=== PATIENT | male | born 1980 | race Caucasian/White ===

== ENCOUNTER 2020-10-05 19:36 | Emergency (ER) | payer MEDICAID, SELFPAY ==
[2020-10-05 19:41] VITALS: BP 128/90; BP 132/72; PULSE 82; PULSE 85; RESP 15; TEMP 36.6; O2SAT 99; BMI 20.4
--- NOTE | 2020-10-05 20:18 | PC.NURSE ---
Bladder scan performed and patient has a small hole at the inside base of his penis directly above his testicles
--- NOTE | 2020-10-05 20:35 | PC.NURSE ---
Patient was straight cathed by Pct and CERTIFIED NUCLEAR MEDICINE TECHNOLOGIST evaluated patient at the bedside. Patient had a large amount of urine. Patient is in police custody and will be released in their custody
--- NOTE | 2020-10-05 20:48 | ED.MALEGU ---
HPI - Male Genitourinary General Chief complaint: Urogenital-Male Stated complaint: URINARY RETENTION Time Seen by Provider: 10/05/20 20:37 Source: patient Mode of arrival: ambulatory Limitations: no limitations History of Present Illness HPI Narrative: 40-year-old past medical history of congenital kidney disease status post kidney transplant, neurogenic bladder with multiple reconstructions at the age of 13, requiring self catheterizations presents in police custody for urinary retention. Has not straight cathed today because of his arrest. He does not describe any other symptoms at this time. MD Complaint: other Onset (ago): hour(s) (8) Duration: constant Severity: severe Severity scale (1-10): 9 Quality: aching Relieving factors: none Exacerbating factors: movement Associated symptoms: Reports urinary retention Related Data Allergies Allergy/AdvReac Type Severity Reaction Status Date / Time Iodinated Contrast Media Allergy Unknown HIVES Verified 10/05/20 20:37 [IV Dye, Iodine Containing] codeine Allergy Unknown Verified 10/05/20 20:38 Review of Systems Review of Systems: Constitutional: No Fever, No Chills ENT/Mouth: No Ear Pain, No Hoarseness, No sore throat Eyes: No Eye Pain, No Swelling, No Redness, No Foreign Body Cardiovascular: No Chest Pain, No SOB Respiratory: No Cough, No Dyspnea Gastrointestinal: No Nausea, No Vomiting, No Diarrhea, No abdominal Pain Genitourinary: Positive urinary retention, No Dysuria, No Hematuria Musculoskeletal: No joint pain, No Myalgias, No Joint Swelling Skin: No Skin lacerations, No rash Neuro: No Weakness, No Numbness, No Paresthesias, No Loss of Consciousness, No Dizziness, No Headache Psych: No Anxiety/Panic, No Depression Heme/Lymph: no easy bruising, no Lymphadenopathy Endocrine: No Polyuria, No Polydipsia Yes all other systems are reviewed and are negative [facility] Past Medical History Surgical History (Updated 10/05/20 @ 19:47 by Kristy Sy) Transplanted kidney Social History Social History Smoking Status: Never smoker Use of substances other than those prescribed or required for medical reasons: Yes Substance Use Type: Marijuana Substance Use Frequency: Daily Advance Directives: No Advance Directives Information Provided: Yes Physical Exam Vital Signs: Vital Signs: Last Vital Signs Temp 98 F 10/05/20 19:41 Pulse 85 10/05/20 19:41 Resp 15 10/05/20 19:41 BP 128/90 H 10/05/20 19:41 Pulse Ox 99 10/05/20 19:41 Body Mass Index 20.4 Appearance: Alert. Oriented X3. No acute distress. Eyes: Pupils equal, round and reactive to light. ENT: Pharynx normal. Neck: Normal inspection. Neck supple. CVS: Normal heart rate and rhythm. Pulses normal. Respiratory: No respiratory distress. Breath sounds normal. Abdomen: Soft and nontender. Skin: Skin warm and dry. Normal skin color. Normal skin turgor. Extremities: No lower extremity edema. Neuro: No motor deficit. No sensory deficit. Course Course Course Narrative: 40-year-old male in police custody presents with urinary retention. He has not been straight cathed in several hours as he has been in police custody. He had a kidney transplant 2002, has had multiple surgeries for congenital kidney disease and has been straight cathing since he was a child. Bladder scan indicates 700 mL residual. Plan of care is for him to straight cath himself. Patient was given a 14 Guatemalan straight catheterization kit, patient did have problems as this is not the kind of system he is used to. Uro jet applied to help with pressure, this WORKSITE WELLNESS PRACTITIONER was able to cannulate the bladder with the 14 Guatemalan Sneed catheterization. 700 mL of residual removed. Patient will be discharged into police custody. Patient verbalized understanding of and agrees to plan of care. MDM - Male Genitourinary MDM Narrative Medical decision making narrative: Chronic urinary retention Medical Records Attestation: I reviewed the patient's medical records. Discharge Plan Discharge Clinical Impression: H/O urinary retention Patient Disposition: Home, Self-Care Instructions: Urinary Retention in Men (ED) Additional Instructions: You were evaluated for urinary retention. We were able to insert a 14 Guatemalan catheter to remove 700 mL of urine. Please continue to maintain your schedule urinary draining. Thank you for choosing this emergency department for evaluation. Please follow-up with primary care physician as needed. Return to the emergency department for any new, concerning, or worsening symptoms. Interventions: ED Discharge Assessment Last Done: 10/05/20 20:43 Discharge Date/Time: 10/05/20 21:32
== END 2020-10-05 21:32 | disposition home or self-care (01) ==
PROVIDERS: Emergency Provider Emergency Medicine; PCP Internal Medicine
DX: R33.8 Other retention of urine (principal); Z94.0 Kidney transplant status
CPT/HCPCS: 51701; 99284

== ENCOUNTER 2024-12-07 19:50 | Emergency (ER) | payer MEDICAID, SELFPAY ==
--- NOTE | ~2024-12-07 | XR_ITS ---
CLINICAL HISTORY: pain 1 view chest x-ray Comparison: None Findings: Low lung volumes with mild subsegmental atelectasis. No consolidation, pneumothorax, or pleural effusion. Cardiac silhouette and mediastinal contours are within upper limits of normal. No acute fracture. IMPRESSION: Low lung volumes without consolidation. This document has been electronically signed by: Perico Sousa MD on 12/08/2024 01:11:27
[2024-12-07 19:56] VITALS: BP 128/88; PULSE 95; O2SAT 96
[2024-12-07 19:58] VITALS: BP 119/85; PULSE 96; RESP 20; TEMP 37; O2SAT 92; BMI 23.7
--- NOTE | 2024-12-07 20:05 | ECG_ITS ---
Test Reason : CHEST PAIN Blood Pressure : */* mmHG Vent. Rate : 98 BPM Atrial Rate : 98 BPM P-R Int : 142 ms QRS Dur : 94 ms QT Int : 386 ms P-R-T Axes : 30 24 10 degrees QTcB Int : 492 ms Normal sinus rhythm Prolonged QT Abnormal ECG When compared with ECG of 07-Aug-2010 02:57, No significant changes seen Referred By: Generic ED Physician Electronically Signed By: JOE BRASHER
[2024-12-07 20:27] LABS: Basophils Absolute Auto 0.1 X10*3/uL (0.0-0.2); Basophils Percent Auto 0.4 % (0-2); Eosinophils Absolute Auto 0.1 X10*3/uL (0.0-0.4); Eosinophils Percent Auto 0.5 % (0-4); Hematocrit 39.8 % (42.0-52.0); Hemoglobin 13.4 g/dl (14.0-18.0); Imm Gran Abs Auto 0.31 X10*3/uL (0.00-0.03); Imm Gran Pct Auto 1.7 % (0.0-0.4); Lymphocytes Absolute Auto 2.8 X10*3/uL (1.2-4.9); Lymphocytes Percent Auto 15.8 % (20-40); MANUAL DIFF FLAG SCAN; Mean Corpuscular HGB Conc 33.7 g/dl (31.0-36.0); Mean Corpuscular Hemoglobin 25.2 pg (27.0-33.0); Mean Platelet Volume 10.1 fL (9.4-12.4); Monocytes Absolute Auto 1.8 X10*3/uL (0.1-1.2); Neutrophils Absolute Auto 12.9 x10*3/uL (2.0-8.3); Neutrophils Percent Auto 71.6 % (45-73); Platelet Count 271 X10*3/uL (160-400); Red Blood Count 5.31 X10*6/uL (4.60-5.80); Red Cell Distribution Width 16.9 % (11.0-16.0); SCAN SMEAR FLAG 1
[2024-12-07 20:40] LABS: Alanine Aminotransferase 15 U/L (0-40); Albumin Level 3.3 g/dL (3.5-5.0); Alkaline Phosphatase 103 U/L (39-117); Anion Gap 15 (12-20); Aspartate Amino Transferase 26 U/L (5-37); Bilirubin Total 0.5 mg/dL (0.0-1.0); Blood Urea Nitrogen 22 mg/dL (9-16); Carbon Dioxide 22 mmol/L (22-29); Chloride 104 mmol/L (96-108); Creatinine Clr Calc Pharmacy 66.4; Estimated Glomerular Filt Rate 48; Glucose Random 197 mg/dL (60-115); Magnesium 2.1 mg/dL (1.6-2.6); Potassium 3.1 mmol/L (3.3-5.1); Sodium 138 mmol/L (135-145); Total Protein 6.5 g/dL (6.5-8.0)
[2024-12-07 20:45] LABS: SLIDE REVIEW VERIFIED
--- OUTSIDE RECORDS SUMMARY | 2024-12-07 20:45 | XMS_ITS | Encounter Summary ---
Author Organization [facility] Address [address] [facility] [address] [place] [address] Phone Care Team Providers Care Project Structural Engineer Name Role Phone Neo Najera MD Primary Care Provider [phone] Reason for Visit * Reason Comments Med Refill Encounter Details Date Type Department Care Team (Late st Contact Info) Description 11/28/2021 Refill [facility] [address] [place] [address] Pawel Rodriguez MD Social History Tobacco Use Types Packs/Day Years Used Date Smoking Tobacco: Former Cigarettes Q uit: 10/01/2009 Smokeless Tobacco: Never Alcohol Use Standard Drinks/Week Comments Not Currently 0 (1 standard drink = 0.6 oz pur e alcohol) Education Answer Date Recorded What is the highest level of school you have completed or the highest degree you have received? Some college, no degree 12/15/2020 Sex and Gender Information Value Date Recorded Sex Assigned at Not on file Legal Sex Male 5:15 PM EST Gender Identity Not on file Sexual Orientation Not on file Occupation Industry Job Start Date Job End Date unemployed Not on file Not on file Not on file COVID-19 Exposure Response Date Recorded In the last month, have you been in contact with someone who was confirmed or suspected to have Coronavirus / COVID-19? Unable to assess 11/15/2021 10:20 AM EST documented as of this encounter Plan of Treatment Upcoming Encounters Date Type Department Care Team (Late st Contact Info) Description 01/09/2025 9:30 AM EDT [facility] [address] [place] [address] Vinay Waddell MD [address] [place] [address] [place] [address] documented as of this encounter Visit Diagnoses Not on filedocumented in this encounter Care Teams Project Structural Engineer Relationship Specialty Start Date End Date Neo Naejra MD [address] [place] [id number] PCP - General 10/11/20 documented as of this encounter
--- OUTSIDE RECORDS SUMMARY | 2024-12-07 20:45 | XMS_ITS | Encounter Summary ---
Author Organization [facility] Address [address] [facility] [address] [place] [address] Phone Care Team Providers Care Brick Tender Name Role Phone Neo Najera MD Primary Care Provider [phone] Reason for Visit * Reason Comments Med Refill Encounter Details Date Type Department Care Team (Late st Contact Info) Description 08/24/2021 Refill [facility] [address] [place] [address] Pawel Rodriguez MD Social History Tobacco Use Types Packs/Day Years Used Date Smoking Tobacco: Former Cigarettes Q uit: 10/01/2009 Smokeless Tobacco: Never Alcohol Use Standard Drinks/Week Comments Yes 0 (1 standard drink = 0.6 oz [...] file Not on file Not on file documented as of this encounter Plan of Treatment Upcoming Encounters Date Type Department Care Team (Late st Contact Info) Description 01/09/2025 9:30 AM EDT [facility] [address] [place] [address] Vinay Waddell MD [address] [place] [address] [place] [address] documented as of this encounter Visit Diagnoses Not on filedocumented in this encounter Care Teams Brick Tender Relationship Specialty Start Date End Date Neo Najera MD [address] [place] [address] PCP - General 10/11/20 documented as of this encounter
--- OUTSIDE RECORDS SUMMARY | 2024-12-07 20:45 | XMS_ITS | Encounter Summary ---
Author Organization [facility] Address [address] [address] Phone Care Team Providers Care Swahili Teacher Name Role Phone Neo Najera MD Primary Care Provider [phone] Reason for Visit * Reason Comments Med Refill Encounter Details Date Type Department Care Team (Late st Contact Info) Description 10/08/2024 Refill [facility] [address] [facility] [address] [place] [phone] Patrice Bravo MD [address] [address] Social History Tobacco Use Types Packs/Day Years [...] Visit [facility] [address] [place] [phone] Vinay Waddell MD [address] [place] [address] [place] [address] documented as of this encounter Visit Diagnoses Not on filedocumented in this encounter Care Teams Swahili Teacher Relationship Specialty Start Date End Date Neo Najera MD [address] [place], [place] [address] [address] PCP - General 10/11/20 documented as of this encounter
--- OUTSIDE RECORDS SUMMARY | 2024-12-07 20:45 | XMS_ITS ---
Author Name [facility] Organization Unknown Problems Problem Status Onset Date Problem Type Date of Resoluti on Source Complication of transplanted kidney, unspecified complication active EncounterDiagnosisAct [facility]
--- OUTSIDE RECORDS SUMMARY | 2024-12-07 20:45 | XMS_ITS | Clinical Summary ---
Author Organization [facility] Address [address] [place] [address] Care Team Providers Care Equine Pharmacology Technician Name Role Phone Pcp, No Primary Care Provider Unavailabl e Encounters Date Type Department Care Team Description 10/09/2024 Travel from Last 3 Months Social History Tobacco Use Types Packs/Day Years Used Date Smoking Tobacco: Never Assessed Sex and Gender Information Value Date Recorded Sex Assigned at Male 09/29/2024 9:44 AM EST Gender Identity Male 09/29/2024 9:44 AM EST Sexual Orientation Heterosexual (straight) 09/29 9:44 AM EST Plan of Treatment Health Maintenance Due Date Last Done Comments Hepatitis C Virus Screening 1982 HIV Screening 1995 DTaP/Tdap/Td Vaccines (1 - Tdap) 2001 Hepatitis B Vaccines (1 of 3 - 19+ 3-dose series) 2001 Influenza Vaccine 05/01/2024 COVID-19 Vaccine (2023- season) 2024 09/04/2022, 03/15/2022, 12/28/2020, Additional history exists HPV Vaccines Aged Out No longer eligi ble based on patient's age to complete this topic Pneumococcal Vaccine: Pediatric (0-5 Years) and At-Risk Patients (6 to 49 Years) Aged Out No longer eligible based on patient's age to complete this topic Care Teams Equine Pharmacology Technician Relationship Specialty Start Date End Date Pcp, No [address] [place] [address] PCP - General 04/26/22
--- OUTSIDE RECORDS SUMMARY | 2024-12-07 20:45 | XMS_ITS | Clinical Summary ---
Author Organization [facility] Address [address] [place] [address] Phone Care Team Providers Care Unix Analyst Name Role Phone Neo Najera MD Primary Care Provider [phone] Medical History Medical History Date Comments Historical Medical DX 05/25/2008 DX:Kidney transplant Historical Medical DX 05/25/2008 DX:Drug ab use, in remission Social History Tobacco Use Types Packs/Day Years Used Date Smoking Tobacco: Former Smokeless Tobacco: Never Alcohol Use Standard Drinks/Week Comments No 0 (1 standard drink = 0.6 oz pur e alcohol) Sex and Gender Information Value Date Recorded Sex Assigned at Not on file Legal Sex Male 1:28 PM EST Gender Identity Not on file Sexual Orientation Not on file Obstetrics History Plan of Treatment Upcoming Encounters Date Type Department Care Team (Late st Contact Info) Description 12/10/2024 1:00 PM EDT Hospital Encounter [address] [address] Tommy King, DMD [address] [place] [phone] 12/10/2024 1:00 PM EDT - 12/10/2024 2:30 PM EDT Surgery [address] [address] Tommy King, DMD [address] [place], [place] [phone] EXTRACTION TOOTH #19 [[id number]] Scheduled Procedures Name Priority Associated Diagnoses Date/Ti me EXTRACTION TEETH Dental caries on smooth surface penetrating into dentin Anxiety disorder, unspecified 12/10/2024 1:00 PM EDT Health Maintenance Due Date Last Done Comments Hepatitis B Vaccines (1 of 3 - 19+ 3-dose series) 2001 Pneumococcal Vaccine: Pediatrics (0 to 5 Years) and At-Risk Patients (6 to 64 Years) (2 of 2 - PPSV23) 11/21/2021 09/26/2021 COVID-19 Vaccine (5 - 2023- season) 2024 09/04/2022, 03/15/2022, 12/28/2020, Additional history exists Influenza Vaccine (#1) 2024 Cholesterol Screening (Lipid Panel) 11/16/2024 Depression Screening 11/16/2024 HIV Screening 11/16/2024 Hepatitis C Screening 11/16/2024 Social Influencers of Health Screening 11/16/2024 Hypertension/CHF/CAD Annual BMP Blood Test 11/18/2024 DTaP,Tdap,and Td Vaccines (3 - Td or Tdap) 07/06/2030 07/06/2020, 11/29/2006 HIB Vaccines Aged Out No longer eligi ble based on patient's age to complete this topic HPV Vaccines Aged Out No longer eligi ble based on patient's age to complete this topic Hepatitis A Vaccines Aged Out No long er eligible based on patient's age to complete this topic IPV Vaccines Aged Out No longer eligi ble based on patient's age to complete this topic MMR Vaccines Aged Out No longer eligi ble based on patient's age to complete this topic Meningococcal ACWY Vaccine Aged Out N o longer eligible based on patient's age to complete this topic Meningococcal B Vacine Aged Out No lo nger eligible based on patient's age to complete this topic RSV Immunization Patients Under 20 months Aged Out No longer eligible based on patient's age to complete this topic Varicella Vaccines Aged Out No longer eligible based on patient's age to complete this topic Insurance [facility] Care Teams Unix Analyst Relationship Specialty Start Date End Date Neo Najera MD [address] [place] [address] PCP - General Internal Medicine 08/15/17
--- OUTSIDE RECORDS SUMMARY | 2024-12-07 20:45 | XMS_ITS | Encounter Summary ---
Author Organization [facility] Address [address] [facility] [address] [place] [address] Phone Care Team Providers Care Letterpress Setter Name Role Phone Neo Najera MD Primary Care Provider [phone] Reason for Visit * Reason Comments Med Refill Encounter Details Date Type Department Care Team (Late st Contact Info) Description 11/02/2021 Refill [facility] [address] [place] [address] Pawel Rodriguez MD Social History [...] or suspected to have Coronavirus / COVID-19? No / Unsure 10/19/2021 8:31 AM EST documented as of this encounter Plan of Treatment Upcoming Encounters Date Type Department Care Team (Late st Contact Info) Description 01/09/2025 9:30 AM EDT Office Visit [facility] [address] [place] [address] Vinay Waddell MD [address] [facility] [place] [address] documented as of this encounter Visit Diagnoses Not on filedocumented in this encounter Care Teams Letterpress Setter Relationship Specialty Start Date End Date Neo Najera MD [address] [place] [address] PCP - General 10/11/20 documented as of this encounter
[2024-12-07 20:47] LABS: Troponin-I High Sensitivity 6.4 ng/L (<3.5-35.0)
[2024-12-07 22:22] VITALS: BP 103/75; PULSE 107; RESP 16; O2SAT 98
--- NOTE | 2024-12-07 22:28 | PC.NURSE ---
Patient removed EKG leads and hosptial rajni. Asked patient to put leads back on, patient refused, stating my EKG was fine . Second trop ordered. Patient continues to be off the monitor. VSS.
[2024-12-07] MEDS: Potassium Chloride Packet 20 MEQ PACKET 40 MEQ PO (23:40)
[2024-12-07] MEDS: 0.9 % Sodium Chloride 1,000 ML 999 ML IV (23:42)
[2024-12-07] MEDS: LORazepam 2 MG/ML VIAL 1 MG IVPUSH (23:43)
[2024-12-07] MEDS: Acetaminophen 325 MG TABLET 975 MG PO (23:59)
--- NOTE | 2024-12-08 00:30 | ED_ITS ---
HPI - Chest Pain General Chief Complaint: Chest Pain Stated Complaint: CP/DIZZY/NAUSEA S/P COCAINE USE PER EMS Time Seen by Provider: 12/07/24 23:09 Source: patient Limitations: no limitations History of Present Illness ED Provider: Geena Sneed PA-C HPI narrative: 44-year-old male with a history of poly substance abuse presents with chest pain. Patient states he developed chest pain after snorting cocaine earlier today. Related Data Allergies Allergy/AdvReac Type Severity Reaction Status Date / Time Iodinated Contrast Media Allergy Unknown HIVES Verified 12/07/24 20:03 [IV Dye, Iodine Containing] codeine Allergy Unknown Verified 12/07/24 20:03 Review of Systems 2 Review of Systems: Yes all other systems are reviewed and are negative Constitutional: Constitutional: Denies fatigue and Denies fever(s) Cardiovascular: Cardiovascular: Reports chest pain, Reports palpitations and Denies dyspnea Respiratory: Respiratory: Denies cough and Denies dyspnea Gastrointestinal: Gastrointestinal: Denies abdominal pain, Denies nausea and Denies vomiting Endocrine: Endocrine: Denies fatigue and Reports palpitations PMF Past Medical History Attestation statement: The following information was validated with the patient. Surgical History (Updated 10/05/20 @ 19:47 by Kristy Sy) Transplanted kidney Social History Social History Smoked in Last 30 Days: No Use of substances other than those prescribed or required for medical reasons: Yes Substance Use Type: Crack/Cocaine and Marijuana Substance Use Frequency: Daily Last Used Substance: Just Prior to Admission Advance Directives: No Advance Directives Information Provided: No Do you have a plan to hurt others: No Plan Physical Exam 2 Vital Signs: Vital Signs: Last Vital Signs Temp 99.6 F 12/08/24 00:46 Pulse 108 H 12/08/24 00:46 Resp 16 12/08/24 00:46 BP 114/76 12/08/24 00:46 Pulse Ox 97 12/08/24 00:46 O2 Del Method Room Air 12/08/24 00:46 BMI result Body Mass Index 23.7 Const: Other: Awake, appears older than stated age Orientation/consciousness: patient oriented x3 Resp: Effort & Inspection: normal respiratory effort Cardio: Other: Normal peripheral perfusion Skin: Other: Warm dry no rash Neuro: General: patient oriented x3, gait normal, no focal motor deficits and CN's II-XI intact bilaterally Psych: Other: Hostile belligerent Medications Administered Discontinued Medications Generic Name Dose Route Start Last Admin Trade Name Maryellen PRN Reason Stop Dose Admin Acetaminophen 975 mg 12/07/24 23:50 12/07/24 23:59 Acetaminophen 325 Mg Tablet PO 12/07/24 23:51 975 mg ONCE ONE Administration Sodium Chloride 1,000 mls @ 999 mls/hr 12/07/24 23:15 12/08/24 00:52 Ns IV 12/08/24 00:15 Infused .Q1H1M SEVERO Infusion Lorazepam 1 mg 12/07/24 23:11 12/07/24 23:43 Lorazepam 2 Mg/Ml Vial IVPUSH 12/07/24 23:12 1 mg ONCE ONE Administration Potassium Chloride 40 meq 12/07/24 23:13 12/07/24 23:40 Potassium Chloride Packet 20 Meq Packet PO 12/07/24 23:14 40 meq ONCE ONE Administration Medical Decision Making Medical Decision Making MDM Narrative: 44-year-old male with a history of poly substance abuse presents with chest pain. Patient states he developed chest pain after snorting cocaine earlier today. Problem: Polysubstance abuse History: Per patient I have considered the following differential diagnoses: ACS, coronary vasospasm, drug/alcohol intoxication Plan: Patient here with cocaine induced chest pain, he is mildly tachycardic, we will give Ativan and fluid. I do not think this is ACS, screening labs including cardiac enzymes EKG and chest x-ray were obtained. I have independently reviewed the following tests: Labs: Leukocytosis noted, not anemic, potassium subtly low we will give 40 mEq p.o., creatinine is 1.59, unclear if this is his baseline, we are giving IV fluid. no other electrolyte abnormality, troponin x2 are flat EKG: Normal sinus rhythm, rate of 98, no ischemic changes no ectopy QTC 492 Chest x-ray:Findings: Low lung volumes with mild subsegmental atelectasis. No consolidation, pneumothorax, or pleural effusion. Cardiac silhouette and mediastinal contours are within upper limits of normal. No acute fracture. IMPRESSION: Low lung volumes without consolidation. Lab Data 12/07/24 20:21 12/07/24 20:21 Labs: Lab Results 12/07/24 12/07/24 Range/Units 20:21 22:32 WBC 18.0 H (4.8-10.8) X10*3/uL RBC 5.31 (4.60-5.80) X10*6/uL Hgb 13.4 L (14.0-18.0) g/dl Hct 39.8 L (42.0-52.0) % MCV 75.0 L (80.0-98.0) fL MCH 25.2 L (27.0-33.0) pg MCHC 33.7 (31.0-36.0) g/dl RDW 16.9 H (11.0-16.0) % Plt Count 271 (160-400) X10*3/uL MPV 10.1 (9.4-12.4) fL Immature Gran % (Auto) 1.7 H (0.0-0.4) % Neut % (Auto) 71.6 (45-73) % Lymph % (Auto) 15.8 L (20-40) % [place] % (Auto) 10.0 (2-11) % Eos % (Auto) 0.5 (0-4) % Baso % (Auto) 0.4 (0-2) % Lymph # (Auto) 2.8 (1.2-4.9) X10*3/uL [place] # (Auto) 1.8 H (0.1-1.2) X10*3/uL Eos # (Auto) 0.1 (0.0-0.4) X10*3/uL Baso # (Auto) 0.1 (0.0-0.2) X10*3/uL Abs Immat Gran (auto) 0.31 H (0.00-0.03) X10*3/uL Absolute Neuts (auto) 12.9 H (2.0-8.3) x10*3/uL Absolute Nucleated RBC 0.000 (0.0-0.012) X10*3/uL Nucleated RBC % (auto) 0.0 (0.0-0.2) /100WBC Smear Tech's Comments VERIFIED Sodium 138 (135-145) mmol/L Potassium 3.1 L (3.3-5.1) mmol/L Chloride 104 (96-108) mmol/L Carbon Dioxide 22 (22-29) mmol/L Anion Gap 15 (12-20) BUN 22 H (9-16) mg/dL Creatinine 1.59 H (0.5-1.4) mg/dL Estim Creat Clear Calc 66.4 Estimated GFR 48 Random Glucose 197 H (60-115) mg/dL Calcium 9.0 (8.4-10.2) mg/dL Magnesium 2.1 (1.6-2.6) mg/dL Total Bilirubin 0.5 (0.0-1.0) mg/dL AST 26 (5-37) U/L ALT 15 (0-40) U/L Alkaline Phosphatase 103 (39-117) U/L Troponin I High Sens 6.4 7.0 (<3.5-35.0) ng/L Total Protein 6.5 (6.5-8.0) g/dL Albumin 3.3 L (3.5-5.0) g/dL Discharge Plan Discharge Clinical Impression: Chest pain, Cocaine abuse Patient Disposition: Home, Self-Care Instructions: Chest Pain (ED), Cocaine Abuse (ED) Additional Instructions: All of your screening labs including 2 cardiac enzymes were normal. There were no concerning changes on her EKG in the chest x-ray is clear. For your own information, the use of cocaine can induce a heart attack. Follow up with your primary care provider as needed. Interventions: ED Discharge Assessment Last Done: 12/08/24 00:46 Discharge Date/Time: 12/08/24 01:01 Print Language: Hong Konger
[2024-12-08 00:46] VITALS: BP 114/76; PULSE 108; RESP 16; TEMP 37.6; O2SAT 97
== END 2024-12-08 01:01 | disposition home or self-care (01) ==
PROVIDERS: Internal Medicine; Emergency Provider Emergency Medicine Emergency Medical Services; PCP Internal Medicine
DX: R07.89 Other chest pain (principal); R42 Dizziness and giddiness; F14.10 Cocaine abuse, uncomplicated; R11.0 Nausea
CPT/HCPCS: 36415; 71045; 80053; 83735; 84484; 85025; 93005; 96361; 96374; 99284; 99285; J2060

== ENCOUNTER → 2024-12-07 20:05 | Outpatient (BNV) | payer MEDICAID, SELFPAY | PROVIDERS: Emergency Provider Emergency Medicine Emergency Medical Services; PCP Internal Medicine; Visit Provider Internal Medicine | DX: R07.9 Chest pain, unspecified (principal); R94.31 Abnormal electrocardiogram [ECG] [EKG] | CPT/HCPCS: 93010 ==

== ENCOUNTER → 2024-12-07 23:11 | Outpatient (BNV) | payer MEDICAID, SELFPAY | PROVIDERS: Emergency Provider Emergency Medicine Emergency Medical Services; PCP Internal Medicine; Visit Provider Radiology Neuroradiology | DX: R07.9 Chest pain, unspecified (principal) | CPT/HCPCS: 71045 ==